=== PATIENT | female | born 1980 | race Caucasian/White ===

== ENCOUNTER 2016-09-06 13:48 | Emergency (ER) | payer OTHER ==
[2016-09-06 14:01] VITALS: BP 140/65; PULSE 99; RESP 20; TEMP 98.3
--- NOTE | 2016-09-06 14:28 | ED ---
General Adult HPI - General Chief complaint: Back Pain/Injury Stated complaint: back pain Time Seen by Provider: 09/06/16 14:04 Source: patient, RN notes reviewed Mode of arrival: wheelchair Limitations: no limitations - History of Present Illness Initial comments: Patient 35-year-old female who presents emergency room today with a chief complaint of increased lower back pain. Does admit to numbness and tingling going down both legs. Does admit to numbness and tingling in her arms. Admits to numbness and tingling in her face. Patient admits that was seen at [facility] emergency room 2 days ago had CAT scans obtained of her lower back which did show some bulging disc. Was advised to follow-up with a neurosurgeon. States she saw the neurosurgeon yesterday was advised to have MRI. States that pain increased today has not been using any pain medication at home. Has not been using any Tylenol or Motrin. States she does not have anything at home to use. States pain is worse today that began having numbness and tingling into her hands bilaterally along with her face to both cheeks and also her tongue. Patient denies any new injury or trauma. Denies any bowel or bladder incontinence retention. Denies any saddle anesthesia. Patient denies any recent fever, chills, shortness of breath, chest pain, abdominal pain, nausea or vomiting, dysuria or hematuria, constipation or diarrhea, headaches or visual changes, or any other complaints. - Related Data Home Medications Medication Instructions Recorded Confirmed No Known Home Medications [No 09/06/16 09/06/16 Known Home Medications] Allergies Allergy/AdvReac Type Severity Reaction Status Date / Time No Known Allergies Allergy Verified 09/06/16 14:01 Review of Systems ROS Statement: Those systems with pertinent positive or pertinent negative responses have been documented in the HPI. ROS Other: All systems not noted in ROS Statement are negative. Past Medical History Past Medical History: Asthma History of Any Multi-Drug Resistant Organisms: None Reported Past Surgical History: Adenoidectomy, Cholecystectomy, Tonsillectomy, Tubal Ligation Past Psychological History: No Psychological Hx Reported Smoking Status: Never smoker Past Alcohol Use History: None Reported Past Drug Use History: None Reported General Exam - General Exam Comments Initial Comments: General: The patient is awake and alert, and does not appear acutely ill. Eye: Pupils are equal, round and reactive to light, extra-ocular movements are intact. No nystagmus. There is normal conjunctiva bilaterally. No signs of icterus. Ears, nose, mouth and throat: There are moist mucous membranes and no oral lesions. Musculoskeletal: patient has normal appearance of thoracic and lumbar spine with no step-offs forms appreciated. Diffuse tenderness throughout lumbar spine with tenderness beginning to fatigue 5 down throughout lumbar. Limited exam assessed due to patient not cooperating. Strength 5/5. Sensation intact. Pulses equal bilaterally 2+. Neurological: A&O x 3. CN II-XII intact, There are no obvious motor or sensory deficits. Coordination appears grossly intact. Speech is normal. Skin: Skin is warm and dry and no rashes or lesions are noted. Psychiatric: Cooperative, appropriate mood & affect, normal judgment. Limitations: no limitations Course Vital Signs 09/06/16 13:59 Temperature 98.3 F Pulse Rate 99 Respiratory 20 Rate Blood Pressure 140/65 O2 Sat by Pulse 100 Oximetry Medical Decision Making - Medical Decision Making patient was seen here in emergency room. A limited exam was able to be performed as patient was not cooperative. She did become upset when I try to push on her back. She states that's were the pain was. I did advise patient that into needed do full assessment and she states she did not understand that she was telling me that for the pain was at and did not want me to push any further along her back. She became upset. I did advise her that we would need to do further evaluation for her symptoms. She stated that she did want any further evaluation here. Advised that we will need to do a rectal exam. She refused. She refused any further treatment states she would go somewhere else. Did not want to be seen here any longer. Patient did leave prior to signing AMA form. Disposition Clinical Impression: Back pain Disposition: Left Against Medical Advice Condition: Undetermined Referrals: Farhat Maya DO [Primary Care Provider] - 1-2 days
== END 2016-09-06 14:22 | disposition left against medical advice (07) ==
LOC: EC 13:48
DX: M54.5 Low back pain (principal); R20.0 Anesthesia of skin; R20.2 Paresthesia of skin
CPT/HCPCS: 99283

== ENCOUNTER → 2017-09-05 | Outpatient (CLI) | payer OTHER ==
--- NOTE | 2017-09-05 10:50 | USB ---
Reason for exam: clinical finding. History: Family history of breast cancer in maternal aunt at age 35 and breast cancer in maternal aunt at age 42. Indicated problem(s): lump or thickening in the left breast. Physical Findings: Nurse Summary: patient states doctor felt palpable lump left breast last week (nurse mj). US Breast LT Left complete breast ultrasound includes all four quadrants, the retroareolar region and axilla. Finding demonstrates a 6 x 4 x 7mm oval, mixed, hypoechoic lesion at 3 o'clock. These results were verbally communicated with the patient and result sheet given to the patient on 09/05/17. ASSESSMENT: Incomplete: need additional imaging evaluation, BI-RAD 0 RECOMMENDATION: Follow-up diagnostic mammogram of both breasts. Manage patient on a clinical basis.
--- NOTE | 2017-09-05 10:51 | MM ---
Reason for exam: clinical finding. Baseline mammogram. History: Family history of breast cancer in maternal aunt at age 35 and breast cancer in maternal aunt at age 42. Indicated problem(s): lump or thickening in the left breast. MG Diagnostic Mammo w CAD JUSTINE Bilateral CC and MLO view(s) were taken. The breast tissue is heterogeneously dense. This may lower the sensitivity of mammography. No suspicious calcifications are seen. Small nodular density seen at ultrasound. These results were verbally communicated with the patient and result sheet given to the patient on 09/05/17. ASSESSMENT: Probably benign, BI-RAD 3 RECOMMENDATION: Ultrasound of the left breast in 6 months. Manage patient on a clinical basis.
== END | disposition home or self-care (01) ==
LOC: RADUSWWP 09:24
PROVIDERS: ATTEND Family Medicine
DX: R92.8 Other abnormal and inconclusive findings on diagnostic imaging of breast (principal)
CPT/HCPCS: 77066

== ENCOUNTER 2017-09-23 17:58 | Emergency (ER) | payer OTHER ==
[2017-09-23 18:05] VITALS: BP 129/81; PULSE 90; RESP 18; TEMP 97.7
--- NOTE | 2017-09-23 18:46 | ED ---
URI HPI - General Chief Complaint: Upper Respiratory Infection Stated Complaint: Cough Time Seen by Provider: 09/23/17 18:21 Source: patient, RN notes reviewed, old records reviewed Mode of arrival: ambulatory Limitations: no limitations - History of Present Illness Initial Comments: 36-year-old female with copping ingestion for one week. He's been taking over- the-counter medications. She was sent in by her boss for a work note in for their evaluation. Denies fever. Cough is been on productive. No history of asthma. Non-smoker. - Related Data Previous Rx's Medication Instructions Recorded Albuterol Inhaler [Ventolin Hfa 1 - 2 puff INHALATION RT-Q6H PRN 09/23/17 Inhaler] #1 inhaler Azithromycin [Zithromax] 250 mg PO DIRECTED #6 tab 09/23/17 Promethazine/Dextromethorphan 5 ml PO TID #120 ml 09/23/17 [Phenergan DM Syrup] methylPREDNISolone Dose Pack 4 mg PO DIRECTED #21 package 09/23/17 [Medrol Dose Pack] Allergies Allergy/AdvReac Type Severity Reaction Status Date / Time amoxicillin Allergy Unknown Verified 09/23/17 18:02 erythromycin base Allergy Unknown Verified 09/23/17 18:02 hydromorphone [From Dilaudid] Allergy Unknown Verified 09/23/17 18:02 ibuprofen [From Motrin] Allergy Unknown Verified 09/23/17 18:02 Review of Systems ROS Statement: Those systems with pertinent positive or pertinent negative responses have been documented in the HPI. ROS Other: All systems not noted in ROS Statement are negative. Past Medical History Past Medical History: Asthma History of Any Multi-Drug Resistant Organisms: None Reported Past Surgical History: Adenoidectomy, Cholecystectomy, Tonsillectomy, Tubal Ligation Past Psychological History: No Psychological Hx Reported Smoking Status: Never smoker Past Alcohol Use History: None Reported Past Drug Use History: None Reported General Exam - General Exam Comments Initial Comments: This is a well appearing 36 year old female, no distress. Limitations: no limitations General appearance: alert, in no apparent distress Head exam: Present: atraumatic, normocephalic, normal inspection Eye exam: Present: normal appearance, PERRL, EOMI. Absent: scleral icterus, conjunctival injection, periorbital swelling ENT exam: Present: normal exam, mucous membranes moist, other (sinus tendernes) Neck exam: Present: normal inspection. Absent: tenderness, meningismus, lymphadenopathy Respiratory exam: Present: normal lung sounds bilaterally, other (Cough). Absent: respiratory distress, wheezes, rales, rhonchi, stridor Cardiovascular Exam: Present: regular rate, normal rhythm, normal heart sounds. Absent: systolic murmur, diastolic murmur, rubs, gallop, clicks GI/Abdominal exam: Present: soft, normal bowel sounds. 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 She always appears well. Lungs are clear to asportation. I discussed train patient for sinus infection and bronchitis with her significant cough. Will start her on steroids and Zpak, as well as cough syrup and inhaler. I discussed appropriate follow up with primary care provider. Give a note for work. Disposition Clinical Impression: Upper respiratory infection, Bronchitis Disposition: HOME SELF-CARE Condition: Good Instructions: Upper Respiratory Infection (ED) Additional Instructions: Patient has follow-up with primary care provider. Return to the emergency department if any alarming signs or symptoms occur. Use the medications as prescribed. Prescriptions: Albuterol Inhaler [Ventolin Hfa Inhaler] 1 - 2 puff INHALATION RT-Q6H PRN #1 inhaler PRN Reason: Shortness Of Breath Azithromycin [Zithromax] 250 mg PO DIRECTED #6 tab methylPREDNISolone Dose Pack [Medrol Dose Pack] 4 mg PO DIRECTED #21 package Promethazine/Dextromethorphan [Phenergan DM Syrup] 5 ml PO TID #120 ml Is patient prescribed a controlled substance at d/c from ED?: No When asked, does pt state using other controlled substances?: No If prescribed controlled substance>3 days was MAPS reviewed?: No If opioid is for acute pain is fill amount 7 days or less?: No If Rx opioid, was Start Talking consent form obtained?: No Referrals: None,Stated [Primary Care Provider] - 1-2 days Time of Disposition: 18:44
== END 2017-09-23 19:05 | disposition home or self-care (01) ==
LOC: EC 17:58
DX: J40 Bronchitis, not specified as acute or chronic (principal); J06.9 Acute upper respiratory infection, unspecified; Z90.89 Acquired absence of other organs; Z88.0 Allergy status to penicillin; Z88.1 Allergy status to other antibiotic agents; Z88.5 Allergy status to narcotic agent; Z88.6 Allergy status to analgesic agent
CPT/HCPCS: 99283

== ENCOUNTER 2017-11-06 07:00 | Emergency (ER) | payer OTHER ==
--- NOTE | 2017-11-06 07:18 | ED ---
General Adult HPI - General Chief complaint: Chest Pain Stated complaint: Chest Back and Arm Pain Time Seen by Provider: 11/06/17 07:00 Source: patient, RN notes reviewed Mode of arrival: ambulatory Limitations: no limitations - History of Present Illness Initial comments: This is a 36-year-old female presents emergency Department complaining of sharp chest pain on the left side of her chest. Patient states it lasts approximately 1 minute. Patient denies any radiation of the pain even though the triage note mentions pain in the arm she denied it to me. Patient states she had no shortness of breath or difficulty breathing. Patient states currently she is having no symptoms whatsoever. Patient denies any diaphoresis. Patient denies any nausea. Patient denies any smoking history. Patient denies diabetes hypertension high cholesterol. Patient denies any previous heart disease. Patient states as a child had asthma but she hasn't had any problems in years. patient denies any swelling to the legs or calf tenderness. - Related Data Home Medications Medication Instructions Recorded Confirmed No Known Home Medications 11/06/17 11/06/17 Allergies Allergy/AdvReac Type Severity Reaction Status Date / Time amoxicillin Allergy Unknown Verified 11/06/17 08:41 erythromycin base Allergy Unknown Verified 11/06/17 08:41 hydromorphone [From Dilaudid] Allergy Unknown Verified 11/06/17 08:41 ibuprofen [From Motrin] Allergy Unknown Verified 11/06/17 08:41 Review of Systems ROS Statement: Those systems with pertinent positive or pertinent negative responses have been documented in the HPI. ROS Other: All systems not noted in ROS Statement are negative. Past Medical History Past Medical History: Asthma History of Any Multi-Drug Resistant Organisms: None Reported Past Surgical History: Adenoidectomy, Cholecystectomy, Tonsillectomy, Tubal Ligation Past Psychological History: No Psychological Hx Reported Smoking Status: Never smoker Past Alcohol Use History: Rare Past Drug Use History: None Reported General Exam - General Exam Comments Initial Comments: GENERAL: Patient is well-developed and well-nourished. Patient is nontoxic and well- hydrated and is in mild distress. ENT: Neck is soft and supple. No significant lymphadenopathy is noted. Oropharynx is clear. Moist mucous membranes. Neck has full range of motion without eliciting any pain. EYES: The sclera were anicteric and conjunctiva were pink and moist. Extraocular movements were intact and pupils were equal round and reactive to light. Eyelids were unremarkable. PULMONARY: Unlabored respirations. Good breath sounds bilaterally. No audible rales rhonchi or wheezing was noted. CARDIOVASCULAR: There is a regular rate and rhythm without any murmurs gallops or rubs. Though the patient was not having any chest pain at rest on palpation the chest pain was reproducible. ABDOMEN: Soft and nontender with normal bowel sounds. No palpable organomegaly was noted. There is no palpable pulsatile mass. SKIN: Skin is clear with no lesions or rashes and otherwise unremarkable. NEUROLOGIC: Patient is alert and oriented x3. Cranial nerves II through XII are grossly intact. Motor and sensory are also intact. Normal speech, volume and content. Symmetrical smile. MUSCULOSKELETAL: Normal extremities with adequate strength and full range of motion. No lower extremity swelling or edema. No calf tenderness. LYMPHATICS: No significant lymphadenopathy is noted PSYCHIATRIC: Normal psychiatric evaluation. Normal interpersonal interactions appears functionally intact in deals appropriately with others. No signs of depression. No signs of anxiety. Limitations: no limitations Course Vital Signs 11/06/17 11/06/17 11/06/17 07:02 07:10 07:30 Temperature 98.0 F Pulse Rate 86 Pulse Rate [ 60 Supine Clerk Analyst] Respiratory 18 18 Rate Blood Pressure 122/87 O2 Sat by Pulse 97 Oximetry Medical Decision Making - Medical Decision Making EKG shows normal sinus rhythm at 91 bpm RI interval 234 QRS is 86 QT interval 38 QTC is 477. Patient's EKG shows no ST segment elevation. Chest x-ray showed no acute abnormality. Patient remained pain free unless I palpated her chest. - Lab Data Result diagrams: 11/06/17 07:45 11/06/17 07:45 Lab Results 11/06/17 11/06/17 11/06/17 Range/Units 07:45 07:45 07:45 WBC 8.8 (3.8-10.6) k/uL RBC 4.36 (3.80-5.40) m/uL Hgb 12.6 (11.4-16.0) gm/dL Hct 37.9 (34.0-46.0) % MCV 86.8 (80.0-100.0) fL MCH 28.9 (25.0-35.0) pg MCHC 33.3 (31.0-37.0) g/dL RDW 12.8 (11.5-15.5) % Plt Count 271 (150-450) k/uL Neutrophils % 72 % Lymphocytes % 20 % Monocytes % 5 % Eosinophils % 1 % Basophils % 0 % Neutrophils # 6.3 (1.3-7.7) k/uL Lymphocytes # 1.7 (1.0-4.8) k/uL Monocytes # 0.5 (0-1.0) k/uL Eosinophils # 0.1 (0-0.7) k/uL Basophils # 0.0 (0-0.2) k/uL Sodium 141 (137-145) mmol/L Potassium 4.3 (3.5-5.1) mmol/L Chloride 107 (98-107) mmol/L Carbon Dioxide 23 (22-30) mmol/L Anion Gap 11 mmol/L BUN 9 (7-17) mg/dL Creatinine 0.59 (0.52-1.04) mg/dL Est GFR (CKD-EPI)AfAm >90 (>60 ml/min/1.73 sqM) Est GFR (CKD-EPI)NonAf >90 (>60 ml/min/1.73 sqM) Glucose 90 (74-99) mg/dL Calcium 9.6 (8.4-10.2) mg/dL Magnesium 1.9 (1.6-2.3) mg/dL Total Bilirubin 0.3 (0.2-1.3) mg/dL AST 19 (14-36) U/L ALT 24 (9-52) U/L Alkaline Phosphatase 54 (38-126) U/L Total Creatine Kinase 60 (30-135) U/L CK-MB (CK-2) 0.3 (0.0-2.4) ng/mL CK-MB (CK-2) Rel Index 0.5 Troponin I <0.012 (0.000-0.034) ng/mL Total Protein 7.2 (6.3-8.2) g/dL Albumin 4.6 (3.5-5.0) g/dL Disposition Clinical Impression: Chest wall pain Disposition: HOME SELF-CARE Instructions: Chest Pain (ED), Chest Wall Pain (ED) Is patient prescribed a controlled substance at d/c from ED?: No Referrals: Layla Real MD [Primary Care Provider] - 1-2 days Time of Disposition: 08:50
[2017-11-06 08:06] LABS: Basophils % (A) 0 %; Eosinophils # (A) 0.1 k/uL (0-0.7); Eosinophils % (A) 1 %; HCT 37.9 % (34.0-46.0); HGB 12.6 gm/dL (11.4-16.0); Lymphocytes # (A) 1.7 k/uL (1.0-4.8); Lymphocytes % (A) 20 %; MCH 28.9 pg (25.0-35.0); MCHC 33.3 g/dL (31.0-37.0); MCV 86.8 fL (80.0-100.0); Mean Platelet Volume 7.6; Monocytes # (A) 0.5 k/uL (0-1.0); Monocytes % (A) 5 %; Neutrophils # (A) 6.3 k/uL (1.3-7.7); Neutrophils % (A) 72 %; Platelet Count 271 k/uL (150-450); RBC 4.36 m/uL (3.80-5.40); RDW 12.8 % (11.5-15.5); WBC 8.8 k/uL (3.8-10.6)
--- NOTE | 2017-11-06 08:11 | XR ---
EXAMINATION TYPE: XR chest 2V DATE OF EXAM: 11/06/2017 COMPARISON: 04/22/14 HISTORY: Chest pain TECHNIQUE: Frontal and lateral views of the chest are obtained. FINDINGS: There is no focal air space opacity. No evidence for pneumothorax. No pleural effusion. The cardiac silhouette size is within normal limits. The osseous structures are grossly intact. IMPRESSION: 1. No acute cardiopulmonary process.
[2017-11-06 08:19] LABS: ALT 24 U/L (9-52); AST 19 U/L (14-36); Albumin 4.6 g/dL (3.5-5.0); Alkaline Phosphatase 54 U/L (38-126); Anion Gap 11 mmol/L; Blood Urea Nitrogen 9 mg/dL (7-17); Calcium 9.6 mg/dL (8.4-10.2); Carbon Dioxide 23 mmol/L (22-30); Chloride 107 mmol/L (98-107); Glucose 90 mg/dL (74-99); Magnesium 1.9 mg/dL (1.6-2.3); Potassium 4.3 mmol/L (3.5-5.1); Sodium 141 mmol/L (137-145); Total Bilirubin 0.3 mg/dL (0.2-1.3); Total Protein 7.2 g/dL (6.3-8.2)
[2017-11-06 08:34] LABS: Creatine Kinase 60 U/L (30-135)
[2017-11-06 08:47] LABS: Creatine Kinase MB 0.3 ng/mL (0.0-2.4); Troponin I <0.012 ng/mL (0.000-0.034)
[2017-11-06 09:19] VITALS: BP 119/61; PULSE 82; RESP 17; TEMP 97.7
== END 2017-11-06 09:19 | disposition home or self-care (01) ==
LOC: EC 07:00
DX: R07.89 Other chest pain (principal); M54.9 Dorsalgia, unspecified; J45.909 Unspecified asthma, uncomplicated; Z88.0 Allergy status to penicillin; Z88.1 Allergy status to other antibiotic agents; Z88.5 Allergy status to narcotic agent; Z88.6 Allergy status to analgesic agent
CPT/HCPCS: 36415; 71046; 80053; 82550; 82553; 83735; 84484; 85025; 93005; 99285

== ENCOUNTER 2018-02-07 08:34 | Emergency (ER) | payer OTHER ==
[2018-02-07 08:51] VITALS: TEMP 98.1
[2018-02-07] MEDS ORDERED: SODIUM CHLORIDE 0.9% 500 ML 500 ML IV STA (09:10)
[2018-02-07] MEDS ORDERED: MECLIZINE 12.5 MG TAB PO STA ×2 (09:10→10:33)
[2018-02-07] MEDS ORDERED: ONDANSETRON 4 MG/2 ML VIAL IVP STA (09:10)
[2018-02-07 09:56] LABS: Basophils % (A) 0 %; Eosinophils # (A) 0.1 k/uL (0-0.7); Eosinophils % (A) 2 %; HCT 42.1 % (34.0-46.0); HGB 13.5 gm/dL (11.4-16.0); Lymphocytes # (A) 2.1 k/uL (1.0-4.8); Lymphocytes % (A) 24 %; MCH 28.5 pg (25.0-35.0); MCHC 32.2 g/dL (31.0-37.0); MCV 88.6 fL (80.0-100.0); Mean Platelet Volume 7.4; Monocytes # (A) 0.3 k/uL (0-1.0); Monocytes % (A) 4 %; Neutrophils % (A) 69 %; Platelet Count 331 k/uL (150-450); RBC 4.75 m/uL (3.80-5.40); RDW 12.5 % (11.5-15.5); WBC 8.7 k/uL (3.8-10.6)
[2018-02-07 10:01] LABS: Appearance,Urine Cloudy (Clear); Bilirubin,Urine Negative (Negative); Blood,Urine Large (Negative); Color,Urine Red; Glucose,Urine (UA) Negative (Negative); Ketones,Urine Negative (Negative); Leukocyte Esterase,Urine Trace (Negative); Mucus,Urine Few /hpf; Nitrite,Urine Negative (Negative); Protein,Urine 2+ (Negative); RBC,Urine >182 /hpf (0-5); Specific Gravity,Urine 1.022 (1.001-1.035); Squamous Epithelial Cell,Urine 33 /hpf (0-4); Urobilinogen,Urine <2.0 mg/dL (<2.0); WBC,Urine 22 /hpf (0-5)
[2018-02-07 10:08] LABS: Albumin 4.8 g/dL (3.5-5.0); Anion Gap 11 mmol/L; Blood Urea Nitrogen 11 mg/dL (7-17); Calcium 10.1 mg/dL (8.4-10.2); Carbon Dioxide 24 mmol/L (22-30); Chloride 105 mmol/L (98-107); Glucose 93 mg/dL (74-99); Sodium 140 mmol/L (137-145); Total Bilirubin 0.5 mg/dL (0.2-1.3); Total Protein 8.4 g/dL (6.3-8.2)
--- NOTE | 2018-02-07 10:09 | CT ---
EXAMINATION TYPE: CT brain wo con DATE OF EXAM: 02/07/2018 COMPARISON: 01/27/2011 HISTORY: dizzy CT DLP: 1067.[address] of the brain was performed. The ventricles, basal cisterns and sulci overlying the cerebral convexities demonstrate a normal appe arance. There is no evidence for intracranial hemorrhage or sulcal effacement. No mass effects are seen. Osseous calvarium is intact. If symptoms persist consider MRI as clinically warranted. IMPRESSION: 1. No acute intracranial process is seen at this time.
--- NOTE | 2018-02-07 10:13 | XR ---
EXAMINATION TYPE: XR chest 2V DATE OF EXAM: 02/07/2018 COMPARISON: 11/06/2017 HISTORY: Chest pain TECHNIQUE: Frontal and lateral views of the chest are obtained. FINDINGS: There is no focal air space opacity. No evidence for pneumothorax. No pleural effusion. The cardiac silhouette size is within normal limits. The osseous structures are grossly intact. IMPRESSION: 1. No acute cardiopulmonary process.
[2018-02-07 10:19] LABS: Potassium 5.1 mmol/L (3.5-5.1)
[2018-02-07 10:20] LABS: ALT 26 U/L (9-52); AST 25 U/L (14-36); Alkaline Phosphatase 48 U/L (38-126)
--- NOTE | 2018-02-07 10:26 | ED ---
General Adult HPI - General Chief complaint: Dizziness Stated complaint: dizzy,vomiting Source: patient, RN notes reviewed, old records reviewed Mode of arrival: wheelchair Limitations: no limitations - History of Present Illness Initial comments: 37-year-old female patient presents to ED with acute onset dizziness with associated nausea and vomiting since approximately 2 PM yesterday. Dizziness had sudden onset, feels as if room is spinning about patient. Patient has experienced nausea and vomiting with associated dizziness. When patient is vomiting she experiences minor headache, but it abates after emesis. Dizziness is made worse when moving her head from side to side. At approximately 3 AM this morning while getting up to use bathroom, patient experienced a fall with possible LOC and unknown head trauma. Patient states that while she was walking in the room became spinning and she fell does not now what happened. Patient reports that she feels as if she sustained no injuries from the fall. Patient states that her cognition is normal. Systemic: Pt denies fatigue, myalgia, fever/chills, rash. Pt denies weakness, night sweats, weight loss. Neuro: Pt denies visual disturbances, photopsia or scotomas. HEENT: Pt denies ocular discharge or irritation, otalgia, rhinorrhea, pharyngitis or notable lymphadenopathy. Cardiopulmonary: Pt denies chest pain, SOB, heart palpitations, dyspnea on exertion. Abdominal/GI: Pt denies abdominal pain, complaints of n/v. : Pt denies dysuria, burning w/ urination, frequency/urgency. Denies new onset urinary or bowel incontinence. MSK: Pt denies myalgia, loss of strength or function in extremities. - Related Data Previous Rx's Medication Instructions Recorded Meclizine [Antivert] 25 mg PO Q6H PRN #20 tab 02/07/18 Ondansetron [Zofran] 4 mg PO Q8HR PRN #15 tab 02/07/18 Allergies Allergy/AdvReac Type Severity Reaction Status Date / Time amoxicillin Allergy Unknown Verified 02/07/18 09:23 erythromycin base Allergy Unknown Verified 02/07/18 09:23 hydromorphone [From Dilaudid] Allergy Unknown Verified 02/07/18 09:23 ibuprofen [From Motrin] Allergy Unknown Verified 02/07/18 09:23 Review of Systems ROS Statement: Those systems with pertinent positive or pertinent negative responses have been documented in the HPI. ROS Other: All systems not noted in ROS Statement are negative. Past Medical History Past Medical History: Asthma History of Any Multi-Drug Resistant Organisms: None Reported Past Surgical History: Adenoidectomy, Cholecystectomy, Tonsillectomy, Tubal Ligation Past Psychological History: No Psychological Hx Reported Smoking Status: Never smoker Past Alcohol Use History: Rare Past Drug Use History: None Reported General Exam - General Exam Comments Initial Comments: Constitutional: NAD, AOX3. HEENT: NC/AT, trachea midline, neck supple, no lymphadenopathy. Posterior pharynx non erythematous, without exudates. External ears appear normal, without discharge. Mucous membranes moist. Eyes PERRLA, EOM intact, precipitated dizziness. No noted nystagmus with extraocular movements. There is no scleral icterus. No pallor noted. Cardiopulmonary: RRR, no murmurs, rubs or gallops, no JVD noted. Lungs CTAB in anterior and posterior alberto. No peripheral edema. Abdominal exam: Abdomen soft and non-distended. Abdomen non-tender to palpation in all 4 quadrants. Bowel sounds active in LLQ. No hepatosplenomegaly. Neuro: CN II-XII grossly intact. MSK: No cervical spine tenderness, full active range of motion. No contusion, ecchymoses or abrasion noted on scalp/skull. Upper and lower extremities examined without tenderness or injury identified. Limitations: no limitations Course Vital Signs 02/07/18 02/07/18 02/07/18 08:48 09:36 11:00 Temperature 98.1 F Pulse Rate 68 67 Respiratory 18 22 17 Rate Blood Pressure 118/79 126/77 O2 Sat by Pulse 96 98 Oximetry 02/07/18 12:00 Temperature Pulse Rate 65 Respiratory 21 Rate Blood Pressure 118/85 O2 Sat by Pulse 99 Oximetry Medical Decision Making - Medical Decision Making Patient dizziness and nausea improved throughout hospital stay. Investigation and etiology of patient's dizziness included chest x-ray and CT of brain that did not demonstrate acute pathology. Complete blood count and complete metabolic profile were unremarkable. Beta hCG was negative. Urinalysis of patient was contaminated and inconclusive secondary to patient starting menses today, patient does not have any urinary complaints, no repeat test necessary. EKG demonstrated was normal sinus rhythm with mild QT prolongation and T-wave inversion in lead 3 V1 and V2. 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 Troponin was negative. Etiology of patient's vertigo is likely benign paroxysmal positional vertigo. Patient will be discharged with prescription of Antivert and Zofran. Patient to return to ED immediately if symptoms worsen or if new symptoms develop. Patient to follow up with primary care provider in 1 to 2 days. - Lab Data Result diagrams: 02/07/18 09:23 02/07/18 09:23 Lab Results 02/07/18 02/07/18 02/07/18 Range/Units 09:23 09:23 09:23 WBC 8.7 (3.8-10.6) k/uL RBC 4.75 (3.80-5.40) m/uL Hgb 13.5 (11.4-16.0) gm/dL Hct 42.1 (34.0-46.0) % MCV 88.6 (80.0-100.0) fL MCH 28.5 (25.0-35.0) pg MCHC 32.2 (31.0-37.0) g/dL RDW 12.5 (11.5-15.5) % Plt Count 331 (150-450) k/uL Neutrophils % 69 % Lymphocytes % 24 % Monocytes % 4 % Eosinophils % 2 % Basophils % 0 % Neutrophils # 6.0 (1.3-7.7) k/uL Lymphocytes # 2.1 (1.0-4.8) k/uL Monocytes # 0.3 (0-1.0) k/uL Eosinophils # 0.1 (0-0.7) k/uL Basophils # 0.0 (0-0.2) k/uL Sodium 140 (137-145) mmol/L Potassium 5.1 (3.5-5.1) mmol/L Chloride 105 (98-107) mmol/L Carbon Dioxide 24 (22-30) mmol/L Anion Gap 11 mmol/L BUN 11 (7-17) mg/dL Creatinine 0.53 (0.52-1.04) mg/dL Est GFR (CKD-EPI)AfAm >90 (>60 ml/min/1.73 sqM) Est GFR (CKD-EPI)NonAf >90 (>60 ml/min/1.73 sqM) Glucose 93 (74-99) mg/dL Calcium 10.1 (8.4-10.2) mg/dL Total Bilirubin 0.5 (0.2-1.3) mg/dL AST 25 (14-36) U/L ALT 26 (9-52) U/L Alkaline Phosphatase 48 (38-126) U/L Troponin I <0.012 (0.000-0.034) ng/mL Total Protein 8.4 H (6.3-8.2) g/dL Albumin 4.8 (3.5-5.0) g/dL Urine Color Urine Appearance (Clear) Urine pH (5.0-8.0) Ur Specific Kempner (1.001-1.035) Urine Protein (Negative) Urine Glucose (UA) (Negative) Urine Ketones (Negative) Urine Blood (Negative) Urine Nitrite (Negative) Urine Bilirubin (Negative) Urine Urobilinogen (<2.0) mg/dL Ur Leukocyte Esterase (Negative) Urine RBC (0-5) /hpf Urine WBC (0-5) /hpf Ur Squamous Epith Cells (0-4) /hpf Urine Mucus (None) /hpf Urine HCG, Qual (Not Detectd) 02/07/18 02/07/18 Range/Units 09:23 09:23 WBC (3.8-10.6) k/uL RBC (3.80-5.40) m/uL Hgb (11.4-16.0) gm/dL Hct (34.0-46.0) % MCV (80.0-100.0) fL MCH (25.0-35.0) pg MCHC (31.0-37.0) g/dL RDW (11.5-15.5) % Plt Count (150-450) k/uL Neutrophils % % Lymphocytes % % Monocytes % % Eosinophils % % Basophils % % Neutrophils # (1.3-7.7) k/uL Lymphocytes # (1.0-4.8) k/uL Monocytes # (0-1.0) k/uL Eosinophils # (0-0.7) k/uL Basophils # (0-0.2) k/uL Sodium (137-145) mmol/L Potassium (3.5-5.1) mmol/L Chloride (98-107) mmol/L Carbon Dioxide (22-30) mmol/L Anion Gap mmol/L BUN (7-17) mg/dL Creatinine (0.52-1.04) mg/dL Est GFR (CKD-EPI)AfAm (>60 ml/min/1.73 sqM) Est GFR (CKD-EPI)NonAf (>60 ml/min/1.73 sqM) Glucose (74-99) mg/dL Calcium (8.4-10.2) mg/dL Total Bilirubin (0.2-1.3) mg/dL AST (14-36) U/L ALT (9-52) U/L Alkaline Phosphatase (38-126) U/L Troponin I (0.000-0.034) ng/mL Total Protein (6.3-8.2) g/dL Albumin (3.5-5.0) g/dL Urine Color Red Urine Appearance Cloudy H (Clear) Urine pH 8.0 (5.0-8.0) Ur Specific Kempner 1.022 (1.001-1.035) Urine Protein 2+ H (Negative) Urine Glucose (UA) Negative (Negative) Urine Ketones Negative (Negative) Urine Blood Large H (Negative) Urine Nitrite Negative (Negative) Urine Bilirubin Negative (Negative) Urine Urobilinogen <2.0 (<2.0) mg/dL Ur Leukocyte Esterase Trace H (Negative) Urine RBC >182 H (0-5) /hpf Urine WBC 22 H (0-5) /hpf Ur Squamous Epith Cells 33 H (0-4) /hpf Urine Mucus Few H (None) /hpf Urine HCG, Qual Not Detected (Not Detectd) - EKG Data EKG shows normal: sinus rhythm Rate: normal EKG Comments: EKG displays normal sinus rhythm. Ventricular rate 74, NH interval 124, QR taoist 90, QT/QTc 406/450. Inverted T-wave in lead 3, V1 and V2. Disposition Clinical Impression: Vertigo Disposition: HOME SELF-CARE Condition: Good Instructions: Benign Paroxysmal Positional Vertigo (ED) Additional Instructions: Patient to adhere to previously discussed treatment plan and will take medication(s) as directed. Patient to follow up with PCP in 1-2 days. Patient to return to ED if symptoms do not improve or if new symptoms develop. Prescriptions: Meclizine [Antivert] 25 mg PO Q6H PRN #20 tab PRN Reason: Dizziness Ondansetron [Zofran] 4 mg PO Q8HR PRN #15 tab PRN Reason: Nausea Is patient prescribed a controlled substance at d/c from ED?: No Referrals: Nash Joel MD [Primary Care Provider] - 1-2 days Time of Disposition: 12:32
[2018-02-07] MEDS ORDERED: MECLIZINE 25 MG TAB PO STA (10:33)
[2018-02-07] MEDS ORDERED: METOCLOPRAMIDE 5 MG/ML 2 ML VIAL IVP STA (11:49)
[2018-02-07 12:15] VITALS: BP 118/85; PULSE 65; RESP 21
== END 2018-02-07 12:48 | disposition home or self-care (01) ==
LOC: EC 08:34
DX: R42 Dizziness and giddiness (principal); R11.2 Nausea with vomiting, unspecified; R51 Headache; Z88.1 Allergy status to other antibiotic agents; Z88.5 Allergy status to narcotic agent; Z88.6 Allergy status to analgesic agent; Z98.51 Tubal ligation status
CPT/HCPCS: 36415; 93005; 80053; 84484; 85025; 81001; 81025; 71046; 70450; 99285; 96374; 96375; 96361; J2765; J2405

== ENCOUNTER → 2019-05-27 | Outpatient (CLI) | payer OTHER ==
--- NOTE | 2019-05-27 22:07 | MR ---
EXAMINATION TYPE: MR lumbar spine wo con DATE OF EXAM: 05/27/2019 COMPARISON: NONE HISTORY: Chronic LBP, BLE radic, hx spina bifida, surgery 2 yrs ago TECHNIQUE: T1 and T2 axial and sagittal images of the lumbar spine are submitted. FINDINGS: There is no abnormal signal seen within the visualized spinal cord or paraspinal soft tissu es. At L1-2 there is no evidence of degenerative disc disease, disc herniation, or canal stenosis. No for aminal encroachment. At L2-3 there is no evidence of degenerative disc disease, disc herniation, canal stenosis, or forami nal encroachment. At L3-4 there is no evidence of degenerative disc disease, disc herniation, canal stenosis, or forami nal encroachment. At L4-5 there is no evidence of degenerative disc disease, disc herniation, canal stenosis, or forami nal encroachment. At L5-S1 there is degenerative disc disease with facet arthropathy. There appears to be a right hemil aminectomy defect. Right paracentral disc protrusion or herniation is noted. There appears to be cont act with the right nerve root and displaces displacement. Bilateral facet arthropathy. IMPRESSION: 1. Suggestion of postsurgical change at L5-S1 with suspicion for a broad-based disc herniation parac entrally to the right with compression of the right nerve root. This is best noted on the T1 axial im age 5. And sagittal image 10..Recommend post contrast images for further evaluation. .
== END | disposition home or self-care (01) ==
LOC: RADMRIMAIN 15:52
PROVIDERS: ATTEND Internal Medicine
DX: M54.5 Low back pain (principal); Z98.890 Other specified postprocedural states
CPT/HCPCS: 72148

== ENCOUNTER 2022-02-01 09:06 | Emergency (ER) | payer OTHER ==
[2022-02-01 09:39] VITALS: TEMP 97.4
--- NOTE | 2022-02-01 10:55 | ED ---
URI HPI - General Chief Complaint: Upper Respiratory Infection Stated Complaint: URI Time Seen by Provider: 02/01/22 09:48 Source: patient, RN notes reviewed Mode of arrival: ambulatory Limitations: no limitations - History of Present Illness Initial Comments: 41-year-old female presents emergency Department with her family for evaluation of a cough. Patient states she's had symptoms on and off for a week. Patient said no reported fever. Patient states nonproductive cough mild nasal congestion. Symptoms very consistent with her kids. Patient denies any respiratory issues no GI symptoms no other complaints. - Related Data Previous Rx's Medication Instructions Recorded Meclizine [Antivert] 25 mg PO Q6H PRN #20 tab 02/07/18 Ondansetron [Zofran] 4 mg PO Q8HR PRN #15 tab 02/07/18 Allergies Allergy/AdvReac Type Severity Reaction Status Date / Time amoxicillin Allergy Unknown Verified 02/01/22 09:39 erythromycin base Allergy Unknown Verified 02/01/22 09:39 hydromorphone [From Dilaudid] Allergy Unknown Verified 02/01/22 09:39 ibuprofen [From Motrin] Allergy Unknown Verified 02/01/22 09:39 Review of Systems ROS Statement: Those systems with pertinent positive or pertinent negative responses have been documented in the HPI. ROS Other: All systems not noted in ROS Statement are negative. Past Medical History Past Medical History: Asthma History of Any Multi-Drug Resistant Organisms: None Reported Past Surgical History: Adenoidectomy, Cholecystectomy, Tonsillectomy, Tubal Ligation Past Psychological History: No Psychological Hx Reported Smoking Status: Never smoker Past Alcohol Use History: Rare Past Drug Use History: None Reported General Exam Limitations: no limitations General appearance: alert, in no apparent distress Head exam: Present: atraumatic, normocephalic, normal inspection Eye exam: Present: normal appearance, PERRL, EOMI. Absent: scleral icterus, conjunctival injection, periorbital swelling ENT exam: Present: normal exam, normal oropharynx, mucous membranes moist Neck exam: Present: normal inspection, full ROM. Absent: tenderness, meningismus, lymphadenopathy Respiratory exam: Present: normal lung sounds bilaterally. Absent: respiratory distress, wheezes, rales, rhonchi, stridor Cardiovascular Exam: Present: regular rate, normal rhythm, normal heart sounds. Absent: systolic murmur, diastolic murmur, rubs, gallop, clicks Neurological exam: Present: alert, oriented X3 Course Vital Signs 02/01/22 09:36 Temperature 97.4 F L Pulse Rate 86 Respiratory 16 Rate Blood Pressure 140/92 O2 Sat by Pulse 96 Oximetry Medical Decision Making - Medical Decision Making Patient has negative COVID-19, symptoms is a viral upper extremity infection return parameters were discussed. - Lab Data Lab Results 02/01/22 Range/Units 10:22 Coronavirus (PCR) Not Detected (Not Detectd) Disposition Clinical Impression: Acute upper respiratory infection Disposition: HOME SELF-CARE Condition: Stable Instructions (If sedation given, give patient instructions): Upper Respiratory Infection (ED) Additional Instructions: Please return to the Emergency Department if symptoms worsen or any other concerns. Is patient prescribed a controlled substance at d/c from ED?: No Referrals: None,Stated [Primary Care Provider] - 1-2 days Time of Disposition: 10:58
[2022-02-01 11:29] VITALS: BP 111/84; PULSE 77; RESP 18
== END 2022-02-01 11:27 | disposition home or self-care (01) ==
LOC: EC 09:06
DX: J06.9 Acute upper respiratory infection, unspecified (principal); J45.909 Unspecified asthma, uncomplicated; Z88.0 Allergy status to penicillin; Z88.1 Allergy status to other antibiotic agents; Z88.5 Allergy status to narcotic agent; Z88.6 Allergy status to analgesic agent; Z20.822 Contact with and (suspected) exposure to COVID-19
CPT/HCPCS: 87635; 99283